=== PATIENT | female | born 1955 | race African-American/Black ===

== ENCOUNTER 2017-01-31 12:39 | Inpatient (IN) | payer MEDICARE ==
[~2017-01-31] VITALS: Ht 162.6 cm; Wt 76.7 kg
[~2017-01-31 12:39] MED LIST: ASPI-1035 PO; ATOR80TA PO; DOCU-150 PO; DOCU250C21 PO; FAMO20TA8 PO; HYDR-3927 PO; INSU100V3 SQ; LEVVL SUBCUT; LISI-604 PO; METO25TA6 PO; POLY17PO3 PO; TICA90TA PO
[2017-01-31] MEDS ORDERED: FAMOTIDINE 20MG/2ML VIAL IV STA (13:23)
[2017-01-31] MEDS ORDERED: SODIUM CHLORIDE 0.9% 1,000 ML IV ONE (13:23)
[2017-01-31] MEDS ORDERED: ONDANSETRON HCL 4MG/2ML VIAL IV STA (13:23)
[2017-01-31] MEDS ORDERED: MORPHINE SULFATE 4 MG/ML CPJ (NOT FOR IM USE) IV STA (13:23)
[2017-01-31 14:25] LABS: CHLORIDE 101 mEq/L (98-107); INDEX HEMOLYSI 1 (1-3); INDEX ICTERIC 1 (1-4); INDEX LIPEMIC 1 (1-3); PROTHROMBIN TIME 10.8 sec
[2017-01-31 14:27] LABS: BASOPHILS % 1.1 % (0.0-2.0); EOSINOPHILS % 1.3 % (0.0-5.0); HEMATOCRIT. 32.7 % (36.0-48.0); HEMOGLOBIN. 10.9 g/dL (12.0-16.0); LYMPHOCYTES % 20.2 % (20.0-50.0); MEAN CORPUSCULAR HEMOGLOBIN 28.7 pg (28.0-32.0); MEAN CORPUSCULAR HGB CONC 33.3 g/dL (31.0-37.0); MEAN CORPUSCULAR VOLUME 86.2 fL (81.0-99.0); MEAN PLATELET VOLUME 7.8 fl (7.4-10.4); MONOCYTES % 8.1 % (2.0-8.0); NEUTROPHILS % 69.3 % (40.0-76.0); PLATELET 406 x1000/uL (130-400); RED BLOOD CELL COUNT 3.79 mill/uL (4.2-5.4); WHITE BLOOD COUNT 4.5 x1000/uL (4.5-11.0)
[2017-01-31 14:28] LABS: ALBUMIN 3.4 g/dL (3.4-5.0); ANION GAP 14; CALCIUM 8.3 mg/dL (8.5-10.1); CARBON DIOXIDE 24 mEq/L (21-32); LIPASE 344 IU/L (73-393); UREA NITROGEN BLOOD 34 mg/dL (7-21)
[2017-01-31 14:35] LABS: ALANINE AMINOTRANSFERASE 15 IU/L (13-61); TROPONIN I 0.05 ng/mL (0.00-0.04); eGFR > 60 mL/min (>60)
[2017-01-31 16:49] LABS: GLUCOSE URINE 1+ (NEGATIVE); KETONES URINE NEGATIVE (NEGATIVE); LEUKOCYTE ESTERASE URINE TRACE (NEGATIVE); NITRITE URINE NEGATIVE (NEGATIVE); OCCULT BLOOD URINE NEGATIVE (NEGATIVE); PROTEIN URINE 2+ (NEGATIVE); SPECIFIC GRAVITY URINE 1.012 (1.005-1.030); UROBILINOGEN URINE 0.2 E.U./dL (0.2-1.0)
[2017-01-31 16:53] LABS: CLARITY URINE CLEAR (CLEAR); COLOR URINE YELLOW (YELLOW)
[2017-01-31 17:26] LABS: BACTERIA URINE 2+; RBC URINE 0-2 /hpf (0-2); SQUAMOUS EPITHELIAL CELL URINE FEW /lpf (RARE/1+)
[2017-01-31 18:20] VITALS: BP 161/84
[2017-01-31 20:02] VITALS: BP 129/67
[2017-01-31] MEDS ORDERED: HYDROMORPHONE HCL/PF 2MG/ML CPJ IV PRN (20:45)
[2017-01-31] MEDS ORDERED: CLONIDINE 0.2MG TABLET PO PRN (20:45)
[2017-01-31] MEDS ORDERED: ONDANSETRON HCL 4MG/2ML VIAL IV PRN (20:45)
[2017-01-31] MEDS ORDERED: DEXTROSE 50% WATER 50ML SYRINGE IV PRN (20:45)
[2017-01-31] MEDS: BLOOD SUGAR DIAGNOSTIC STRIP TEST SCH (21:34)
[2017-01-31] MEDS: INSULIN LISPRO 100 UNITS/ML SUBCUT SCH (21:38)
[2017-01-31] MEDS: INSULIN DETEMIR UD 100 UNITS/ML SYR SUBCUT SCH (22:00)
[2017-01-31] MEDS: SODIUM CHLORIDE 0.45% 1,000 ML IV SCH (22:13)
[2017-02-01 00:08] VITALS: BP 135/70
[2017-02-01] MEDS: HYDROCODONE/ACETAMINOPHEN 5/325MG TABLET PO PRN ×3 (00:27→21:13)
[2017-02-01 04:10] VITALS: BP 121/62
[2017-02-01 07:13] LABS: BASOPHILS % 1.8 % (0.0-2.0); EOSINOPHILS % 3.8 % (0.0-5.0); HEMATOCRIT. 31.7 % (36.0-48.0); HEMOGLOBIN. 10.5 g/dL (12.0-16.0); LYMPHOCYTES % 52.9 % (20.0-50.0); MEAN CORPUSCULAR HEMOGLOBIN 28.6 pg (28.0-32.0); MEAN CORPUSCULAR VOLUME 86.9 fL (81.0-99.0); MEAN PLATELET VOLUME 7.8 fl (7.4-10.4); MONOCYTES % 10.3 % (2.0-8.0); NEUTROPHILS % 31.2 % (40.0-76.0); PLATELET 390 x1000/uL (130-400); RED BLOOD CELL COUNT 3.65 mill/uL (4.2-5.4); RED CELL DISTRIBUTION WIDTH 13.9 % (11.6-14.6); WHITE BLOOD COUNT 3.5 x1000/uL (4.5-11.0)
[2017-02-01 07:36] LABS: ANION GAP 13; CALCIUM 8.9 mg/dL (8.5-10.1); CARBON DIOXIDE 25 mEq/L (21-32); CHLORIDE 100 mEq/L (98-107); INDEX HEMOLYSI 1 (1-3); INDEX ICTERIC 1 (1-4); INDEX LIPEMIC 1 (1-3); UREA NITROGEN BLOOD 32 mg/dL (7-21); eGFR > 60 mL/min (>60)
[2017-02-01] MEDS: BLOOD SUGAR DIAGNOSTIC STRIP TEST SCH ×4 (07:40→21:12)
[2017-02-01] MEDS: DOCUSATE SODIUM 250MG CAPSULE PO SCH ×2 (08:08→18:40)
[2017-02-01] MEDS: LISINOPRIL 20MG TABLET PO SCH (08:08)
[2017-02-01] MEDS: FAMOTIDINE 20MG TABLET PO SCH (08:08)
[2017-02-01] MEDS: ENOXAPARIN 40MG/0.4ML SYR SUBCUT SCH (08:09)
[2017-02-01] MEDS: METOPROLOL TARTRATE 25MG TABLET PO SCH (08:09)
[2017-02-01] MEDS: SODIUM CHLORIDE 0.45% 1,000 ML IV SCH ×2 (08:10→18:40)
[2017-02-01] MEDS: INSULIN LISPRO 100 UNITS/ML SUBCUT SCH ×4 (08:52→21:15)
[2017-02-01 20:00] VITALS: BP 110/64
[2017-02-01] MEDS: INSULIN DETEMIR UD 100 UNITS/ML SYR SUBCUT SCH (21:16)
[2017-02-02] VITALS (7 sets, daily range): BP systolic 100–136; BP diastolic 55–72
[2017-02-02] MEDS: ZOLPIDEM TARTRATE 5MG TABLET PO PRN (00:42)
[2017-02-02] MEDS: HYDROCODONE/ACETAMINOPHEN 5/325MG TABLET PO PRN ×3 (03:22→18:41)
[2017-02-02] MEDS: SODIUM CHLORIDE 0.45% 1,000 ML IV SCH ×3 (03:23→21:17)
[2017-02-02] MEDS: BLOOD SUGAR DIAGNOSTIC STRIP TEST SCH ×4 (06:52→21:00)
[2017-02-02] MEDS: FAMOTIDINE 20MG TABLET PO SCH (08:04)
[2017-02-02] MEDS: DOCUSATE SODIUM 250MG CAPSULE PO SCH ×2 (08:04→17:52)
[2017-02-02] MEDS: ENOXAPARIN 40MG/0.4ML SYR SUBCUT SCH (08:05)
[2017-02-02] MEDS: METOPROLOL TARTRATE 25MG TABLET PO SCH (08:05)
[2017-02-02] MEDS: LISINOPRIL 20MG TABLET PO SCH (08:06)
[2017-02-02] MEDS: INSULIN LISPRO 100 UNITS/ML SUBCUT SCH ×4 (08:07→21:00)
[2017-02-02] MEDS: INSULIN DETEMIR UD 100 UNITS/ML SYR SUBCUT SCH (22:17)
[2017-02-03] MEDS: ZOLPIDEM TARTRATE 5MG TABLET PO PRN (02:35)
[2017-02-03 04:00] VITALS: BP 140/72
[2017-02-03] MEDS: BLOOD SUGAR DIAGNOSTIC STRIP TEST SCH (07:40)
[2017-02-03] MEDS: INSULIN LISPRO 100 UNITS/ML SUBCUT SCH (08:10)
[2017-02-03 08:12] VITALS: BP 144/77
[2017-02-03] MEDS: DOCUSATE SODIUM 250MG CAPSULE PO SCH (08:58)
[2017-02-03] MEDS: METOPROLOL TARTRATE 25MG TABLET PO SCH (08:58)
[2017-02-03] MEDS: FAMOTIDINE 20MG TABLET PO SCH (08:58)
[2017-02-03] MEDS: LISINOPRIL 20MG TABLET PO SCH (08:59)
[2017-02-03] MEDS: ENOXAPARIN 40MG/0.4ML SYR SUBCUT SCH (09:00)
[2017-02-03] MEDS: HYDROCODONE/ACETAMINOPHEN 5/325MG TABLET PO PRN (09:07)
[2017-02-03 11:23] VITALS: BP_SYST 106; BP_SYST 140; BP_DIAS 51; BP_DIAS 78
[2017-02-03 12:00] VITALS: BP 140/78
== END 2017-02-03 12:20 | disposition home or self-care (01) | DRG 391 ==
LOC: ER 14:47 → 7WST 15:24
PROVIDERS: ADMIT Internal Medicine; ATTEND Internal Medicine
DX: K52.9 Noninfective gastroenteritis and colitis, unspecified (principal); G93.41 Metabolic encephalopathy; E46 Unspecified protein-calorie malnutrition; K29.70 Gastritis, unspecified, without bleeding; E86.0 Dehydration; I10 Essential (primary) hypertension; D64.9 Anemia, unspecified; E78.5 Hyperlipidemia, unspecified; G89.4 Chronic pain syndrome; I25.10 Atherosclerotic heart disease of native coronary artery without angina pectoris; M54.9 Dorsalgia, unspecified; M19.90 Unspecified osteoarthritis, unspecified site; Z95.5 Presence of coronary angioplasty implant and graft; I25.2 Old myocardial infarction; Z88.1 Allergy status to other antibiotic agents; Z79.82 Long term (current) use of aspirin; Z79.4 Long term (current) use of insulin; Z79.899 Other long term (current) drug therapy; Z68.29 Body mass index [BMI] 29.0-29.9, adult; E11.43 Type 2 diabetes mellitus with diabetic autonomic (poly)neuropathy
CPT/HCPCS: 36415; 71010; 74176; 80048; 80053; 81001; 82962; 83605; 83690; 84484; 85025; 85610; 93005; 96361; 96374; 96375; 99285; C1893; J1650; J1815; J2270; J2405; J3490; J7030

== ENCOUNTER 2017-03-21 09:34 | Inpatient (IN) | payer MEDICARE ==
[~2017-03-21] VITALS: Ht 162.6 cm; Wt 66.2 kg
[~2017-03-21 09:34] MED LIST changes: -ASPI-1035 PO; +ASPI-1159 PO; -INSU100V3 SQ; -LEVVL SUBCUT; +METF500T4 PO
[2017-03-21] MEDS ORDERED: SODIUM CHLORIDE 0.9% 1,000 ML IV ONE (09:54)
[2017-03-21] MEDS ORDERED: ONDANSETRON HCL 4MG/2ML VIAL IV STA (09:54)
[2017-03-21] MEDS ORDERED: FAMOTIDINE 20MG/2ML VIAL IV STA (09:54)
[2017-03-21 10:16] LABS: BASOPHILS % 1.1 % (0.0-2.0); EOSINOPHILS % 0.1 % (0.0-5.0); HEMATOCRIT. 38.6 % (36.0-48.0); LYMPHOCYTES % 15.6 % (20.0-50.0); MEAN CORPUSCULAR HEMOGLOBIN 28.3 pg (28.0-32.0); MEAN PLATELET VOLUME 7.5 fl (7.4-10.4); MONOCYTES % 6.8 % (2.0-8.0); NEUTROPHILS % 76.4 % (40.0-76.0); PLATELET 413 x1000/uL (130-400); RED CELL DISTRIBUTION WIDTH 14.6 % (11.6-14.6)
[2017-03-21 10:23] LABS: PROTHROMBIN TIME 10.7 sec
[2017-03-21 10:30] LABS: CARBON DIOXIDE 24 mEq/L (21-32); CHLORIDE 80 mEq/L (98-107)
[2017-03-21 10:33] LABS: TROPONIN I 0.07 ng/mL (0.00-0.04)
[2017-03-21] MEDS ORDERED: SODIUM CHLORIDE 0.9% 1,100 ML IV ONE (10:50)
[2017-03-21] MEDS ORDERED: METOCLOPRAMIDE HCL 10MG/2ML VIAL IV ONE (11:15)
[2017-03-21] MEDS ORDERED: DIPHENHYDRAMINE 50MG/ML VIAL IV ONE (11:15)
[2017-03-21 11:23] LABS: GLUCOSE URINE 1+ (NEGATIVE); KETONES URINE TRACE (NEGATIVE); LEUKOCYTE ESTERASE URINE NEGATIVE (NEGATIVE); NITRITE URINE NEGATIVE (NEGATIVE); OCCULT BLOOD URINE 1+ (NEGATIVE); PROTEIN URINE 2+ (NEGATIVE); SPECIFIC GRAVITY URINE 1.022 (1.005-1.030); UROBILINOGEN URINE 0.2 E.U./dL (0.2-1.0)
[2017-03-21 11:24] LABS: CLARITY URINE CLOUDY (CLEAR); COLOR URINE YELLOW (YELLOW)
[2017-03-21] MEDS ORDERED: MAGNESIUM/ALUMINUM HYDROXIDE/SIMETHICONE 30ML UDC PO PRN (12:00)
[2017-03-21] MEDS ORDERED: HYDROCODONE/ACETAMINOPHEN 10/325MG TABLET PO PRN (12:00)
[2017-03-21] MEDS ORDERED: CEFTRIAXONE 2 G PREMIX 50 ML IV NR (12:00)
[2017-03-21] MEDS ORDERED: LORAZEPAM 2MG/ML CPJ IV PRN (12:00)
[2017-03-21] MEDS ORDERED: IPRATROPIUM/ALBUTEROL 0.5-3(2.5)MG/3ML NEB INH PRN (12:00)
[2017-03-21] MEDS ORDERED: NA PHOS,M-B/NA PHOS,DI-BA ENEMA 118ML PR PRN (12:00)
[2017-03-21] MEDS ORDERED: ACETAMINOPHEN 325MG TABLET PO PRN (12:00)
[2017-03-21] MEDS ORDERED: GUAIFENESIN 200MG/10ML SUGAR FREE UDC PO PRN (12:00)
[2017-03-21] MEDS ORDERED: DOCUSATE SODIUM 100MG CAPSULE PO PRN (12:00)
[2017-03-21] MEDS ORDERED: CLONIDINE 0.1MG TABLET PO PRN (12:00)
[2017-03-21 12:38] LABS: BG BASE EXCESS -3.3 mmol/L (-2.0-2.0); BG CARBOXYHEMOGLOBIN 0.3 % (0.5-1.5); BG DEOXYHEMOGLOBIN 2.8 % (0.0-5.0); BG FRACTION INSPIRED OXYGEN 21; BG HCO3 ACT 21.2 mmol/L (22.0-26.0); BG METHEMOGLOBIN 0.3 % (0.0-1.5); BG OXYGEN SATURATION 97.2 % (92.0-98.5); BG OXYHEMOGLOBIN 96.6 % (94.0-97.0); BG PCO2 35.9 mmHg (35.0-45.0); BG PH 7.389 (7.350-7.450); BG PO2 104.1 mmHg (75.0-100.0); BG SAMPLE SITE RIGHT BRACHIAL; BG TOTAL HEMOGLOBIN 11.3 g/dL (12.0-18.0); BG VENT MODE ROOM AIR
[2017-03-21] MEDS: SODIUM CHLORIDE 0.45% 1,000 ML IV SCH ×2 (13:58→18:28)
[2017-03-21 14:58] LABS: TROPONIN I 0.06 ng/mL (0.00-0.04)
[2017-03-21] MEDS ORDERED: DEXTROSE 50% WATER 50ML SYRINGE IV PRN (16:30)
[2017-03-21 16:39] VITALS: BP 139/75
[2017-03-21] MEDS: BLOOD SUGAR DIAGNOSTIC STRIP TEST SCH ×3 (17:00→21:34)
[2017-03-21] MEDS: TICAGRELOR 90 MG TABLET PO SCH (18:14)
[2017-03-21] MEDS: INSULIN LISPRO 100 UNITS/ML SUBCUT SCH ×2 (18:14→21:34)
[2017-03-21] MEDS: ENOXAPARIN 30MG/0.3ML SYR SUBCUT SCH (18:15)
[2017-03-21 20:32] VITALS: BP 91/51
[2017-03-21] MEDS: HYDROMORPHONE HCL/PF 2MG/ML CPJ IV PRN (23:25)
[2017-03-22] VITALS: BP 98/49
[2017-03-22] MEDS: ONDANSETRON HCL 4MG/2ML VIAL IV PRN ×4 (01:10→23:59)
[2017-03-22 04:00] VITALS: BP 135/69
[2017-03-22] MEDS: SODIUM CHLORIDE 0.45% 1,000 ML IV SCH (04:31)
[2017-03-22 05:37] LABS: BASOPHILS % 0.5 % (0.0-2.0); EOSINOPHILS % 0.9 % (0.0-5.0); HEMATOCRIT. 31.6 % (36.0-48.0); HEMOGLOBIN. 10.8 g/dL (12.0-16.0); LYMPHOCYTES % 13.6 % (20.0-50.0); MEAN CORPUSCULAR HEMOGLOBIN 28.4 pg (28.0-32.0); MEAN CORPUSCULAR VOLUME 83.4 fL (81.0-99.0); MEAN PLATELET VOLUME 7.6 fl (7.4-10.4); MONOCYTES % 8.4 % (2.0-8.0); NEUTROPHILS % 76.6 % (40.0-76.0); PLATELET 291 x1000/uL (130-400); RED BLOOD CELL COUNT 3.79 mill/uL (4.2-5.4); RED CELL DISTRIBUTION WIDTH 14.4 % (11.6-14.6)
[2017-03-22 06:37] LABS: CARBON DIOXIDE 24 mEq/L (21-32); CHLORIDE 95 mEq/L (98-107); LDL CHOLESTEROL 137 mg/dL (5-100)
[2017-03-22 06:40] LABS: HDL CHOLESTEROL 42 mg/dL (40-59); T4 FREE 1.85 ng/dL (0.76-1.46)
[2017-03-22] MEDS: BLOOD SUGAR DIAGNOSTIC STRIP TEST SCH ×4 (06:50→20:46)
[2017-03-22 08:00] VITALS: BP 115/58
[2017-03-22] MEDS: FAMOTIDINE 20MG TABLET PO SCH (08:40)
[2017-03-22] MEDS: ASPIRIN 81MG EC TABLET PO SCH (08:40)
[2017-03-22] MEDS: METOPROLOL TARTRATE 25MG TABLET PO SCH (08:41)
[2017-03-22] MEDS: TICAGRELOR 90 MG TABLET PO SCH ×2 (08:41→16:27)
[2017-03-22] MEDS: ENOXAPARIN 30MG/0.3ML SYR SUBCUT SCH (08:42)
[2017-03-22] MEDS: INSULIN LISPRO 100 UNITS/ML SUBCUT SCH ×4 (08:44→20:47)
[2017-03-22] MEDS ORDERED: POTASSIUM ACETATE IV SCH ×2 (09:15→09:16)
[2017-03-22] MEDS ORDERED: SODIUM CHLORIDE 0.9% IV SCH ×2 (09:15→09:16)
[2017-03-22] MEDS ORDERED: SODIUM CHLORIDE 0.9% 1,000 ML IV SCH (09:45)
[2017-03-22] MEDS: POTASSIUM CHLORIDE INJ 30 MEQ in SODIUM CHLORIDE 0.9% 1,000 ML IV SCH ×2 (11:02→20:46)
[2017-03-22 12:03] VITALS: BP 106/57
[2017-03-22 16:00] VITALS: BP 121/64
[2017-03-22] MEDS: HYDROMORPHONE HCL/PF 2MG/ML CPJ IV PRN ×2 (16:28→23:04)
[2017-03-22 20:00] VITALS: BP 124/66
[2017-03-23] VITALS: BP 141/67
[2017-03-23 04:00] VITALS: BP 113/63
[2017-03-23 05:53] LABS: BASOPHILS % 0.9 % (0.0-2.0); EOSINOPHILS % 2.4 % (0.0-5.0); HEMATOCRIT. 26.8 % (36.0-48.0); HEMOGLOBIN. 8.9 g/dL (12.0-16.0); MEAN CORPUSCULAR HEMOGLOBIN 27.9 pg (28.0-32.0); MEAN CORPUSCULAR VOLUME 84.4 fL (81.0-99.0); MEAN PLATELET VOLUME 7.9 fl (7.4-10.4); MONOCYTES % 7.3 % (2.0-8.0); NEUTROPHILS % 62.4 % (40.0-76.0); PLATELET 256 x1000/uL (130-400); RED BLOOD CELL COUNT 3.17 mill/uL (4.2-5.4); RED CELL DISTRIBUTION WIDTH 14.4 % (11.6-14.6)
[2017-03-23] MEDS: BLOOD SUGAR DIAGNOSTIC STRIP TEST SCH ×4 (06:41→20:02)
[2017-03-23 08:00] VITALS: BP 128/66
[2017-03-23] MEDS: POTASSIUM CHLORIDE INJ 30 MEQ in SODIUM CHLORIDE 0.9% 1,000 ML IV SCH ×2 (08:18→17:11)
[2017-03-23] MEDS: ONDANSETRON HCL 4MG/2ML VIAL IV PRN (08:36)
[2017-03-23] MEDS: METOPROLOL TARTRATE 25MG TABLET PO SCH (08:55)
[2017-03-23] MEDS: ASPIRIN 81MG EC TABLET PO SCH (08:55)
[2017-03-23] MEDS: LOSARTAN POTASSIUM 50 MG TABLET PO SCH (08:55)
[2017-03-23] MEDS: FAMOTIDINE 20MG TABLET PO SCH (08:55)
[2017-03-23] MEDS: INSULIN LISPRO 100 UNITS/ML SUBCUT SCH ×4 (08:56→20:34)
[2017-03-23] MEDS: ENOXAPARIN 30MG/0.3ML SYR SUBCUT SCH (08:57)
[2017-03-23] MEDS: TICAGRELOR 90 MG TABLET PO SCH ×2 (09:46→17:13)
[2017-03-23] MEDS: HYDROMORPHONE HCL/PF 2MG/ML CPJ IV PRN ×2 (11:21→22:28)
[2017-03-23 12:00] VITALS: BP 111/57
[2017-03-23 16:00] VITALS: BP 115/67
[2017-03-23 20:00] VITALS: BP 109/52
[2017-03-24] VITALS: BP 116/62
[2017-03-24] MEDS: ONDANSETRON HCL 4MG/2ML VIAL IV PRN (00:06)
[2017-03-24] MEDS: HYDROMORPHONE HCL/PF 2MG/ML CPJ IV PRN ×4 (02:26→23:12)
[2017-03-24 04:00] VITALS: BP 148/81
[2017-03-24 05:28] LABS: BASOPHILS % 0.5 % (0.0-2.0); EOSINOPHILS % 3.7 % (0.0-5.0); HEMATOCRIT. 28.4 % (36.0-48.0); HEMOGLOBIN. 9.5 g/dL (12.0-16.0); LYMPHOCYTES % 27.6 % (20.0-50.0); MEAN CORPUSCULAR HEMOGLOBIN 28.2 pg (28.0-32.0); MEAN CORPUSCULAR VOLUME 84.6 fL (81.0-99.0); MEAN PLATELET VOLUME 7.8 fl (7.4-10.4); MONOCYTES % 7.8 % (2.0-8.0); NEUTROPHILS % 60.4 % (40.0-76.0); PLATELET 295 x1000/uL (130-400); RED BLOOD CELL COUNT 3.36 mill/uL (4.2-5.4); RED CELL DISTRIBUTION WIDTH 14.7 % (11.6-14.6)
[2017-03-24] MEDS: BLOOD SUGAR DIAGNOSTIC STRIP TEST SCH ×4 (07:40→19:59)
[2017-03-24 08:00] VITALS: BP 134/63
[2017-03-24] MEDS: LOSARTAN POTASSIUM 50 MG TABLET PO SCH (08:18)
[2017-03-24] MEDS: INSULIN LISPRO 100 UNITS/ML SUBCUT SCH ×4 (08:18→20:18)
[2017-03-24] MEDS: ASPIRIN 81MG EC TABLET PO SCH (08:18)
[2017-03-24] MEDS: FAMOTIDINE 20MG TABLET PO SCH (08:18)
[2017-03-24] MEDS: TICAGRELOR 90 MG TABLET PO SCH ×2 (08:19→18:05)
[2017-03-24] MEDS: ENOXAPARIN 30MG/0.3ML SYR SUBCUT SCH (08:19)
[2017-03-24] MEDS: METOPROLOL TARTRATE 25MG TABLET PO SCH (08:19)
[2017-03-24 12:00] VITALS: BP 123/65
[2017-03-24 16:00] VITALS: BP 126/77
[2017-03-24 20:00] VITALS: BP 154/76
[2017-03-25] VITALS: BP 146/77
[2017-03-25] MEDS: ONDANSETRON HCL 4MG/2ML VIAL IV PRN (00:58)
[2017-03-25 04:00] VITALS: BP 127/67
[2017-03-25 06:37] LABS: CARBON DIOXIDE 28 mEq/L (21-32); CHLORIDE 101 mEq/L (98-107)
[2017-03-25] MEDS: BLOOD SUGAR DIAGNOSTIC STRIP TEST SCH (07:40)
[2017-03-25 08:00] VITALS: BP 147/76
[2017-03-25] MEDS: FAMOTIDINE 20MG TABLET PO SCH (08:47)
[2017-03-25] MEDS: METOPROLOL TARTRATE 25MG TABLET PO SCH (08:47)
[2017-03-25] MEDS: ASPIRIN 81MG EC TABLET PO SCH (08:47)
[2017-03-25] MEDS: TICAGRELOR 90 MG TABLET PO SCH (08:47)
[2017-03-25] MEDS: INSULIN LISPRO 100 UNITS/ML SUBCUT SCH (08:48)
[2017-03-25] MEDS: LOSARTAN POTASSIUM 50 MG TABLET PO SCH (08:48)
[2017-03-25] MEDS ORDERED: ENOXAPARIN 40MG/0.4ML SYR SUBCUT SCH (09:00)
[2017-03-25 10:24] LABS: CARBON DIOXIDE 30 mEq/L (21-32); CHLORIDE 102 mEq/L (98-107)
[2017-03-25 10:52] VITALS: BP 147/76
== END 2017-03-25 11:20 | disposition home or self-care (01) | DRG 73 ==
LOC: ER 10:20 → 7WST 11:16 → ENRESERV 14:16
PROVIDERS: ADMIT Internal Medicine; ATTEND Internal Medicine
DX: E11.43 Type 2 diabetes mellitus with diabetic autonomic (poly)neuropathy (principal); N17.0 Acute kidney failure with tubular necrosis; E87.1 Hypo-osmolality and hyponatremia; E46 Unspecified protein-calorie malnutrition; I25.10 Atherosclerotic heart disease of native coronary artery without angina pectoris; K31.84 Gastroparesis; I12.9 Hypertensive chronic kidney disease with stage 1 through stage 4 chronic kidney disease, or unspecified chronic kidney disease; E11.65 Type 2 diabetes mellitus with hyperglycemia; E78.5 Hyperlipidemia, unspecified; N18.9 Chronic kidney disease, unspecified; E11.22 Type 2 diabetes mellitus with diabetic chronic kidney disease; E86.0 Dehydration; E87.5 Hyperkalemia; E87.6 Hypokalemia; T46.5X5A Adverse effect of other antihypertensive drugs, initial encounter; Z91.19 Patient's noncompliance with other medical treatment and regimen; Z76.5 Malingerer [conscious simulation]; Z95.5 Presence of coronary angioplasty implant and graft; I25.2 Old myocardial infarction; Z88.1 Allergy status to other antibiotic agents; Z68.25 Body mass index [BMI] 25.0-25.9, adult; Z79.899 Other long term (current) drug therapy; Z79.82 Long term (current) use of aspirin; Y92.89 Other specified places as the place of occurrence of the external cause; Z83.3 Family history of diabetes mellitus
CPT/HCPCS: 36415; 36600; 51702; 71010; 80048; 80053; 80061; 81001; 82010; 82375; 82805; 82962; 83605; 83690; 84439; 84481; 84484; 85025; 85610; 87040; 87086; 93005; 96361; 96365; 96375; 97162; 99291; J0696; J1170; J1200; J1650; J1815; J2060; J2405; J2765; J3480; J3490; J7030; A4315; J8499

== ENCOUNTER 2020-09-03 19:22 | Inpatient (IN) | payer BC, MEDICARE ==
[~2020-09-03] VITALS: Ht 162.6 cm; Wt 55.3 kg
[~2020-09-03 19:22] MED LIST changes: -ASPI-1159 PO; +ASPI-1497 PO; -DOCU250C21 PO; +DOCU250C87 PO; +METF-414 PO; -METF500T4 PO
[2020-09-03] MEDS ORDERED: ONDANSETRON HCL 4MG/2ML INJ IV STA (19:46)
[2020-09-03] MEDS ORDERED: MORPHINE SULFATE 4 MG/ML CPJ (NOT FOR IM USE) IV STA (19:46)
[2020-09-03 20:36] LABS: HEMATOCRIT. 25.9 % (36.0-48.0); HEMOGLOBIN. 8.7 g/dL (12.0-16.0); MEAN CORPUSCULAR HEMOGLOBIN 27.6 pg (28.0-32.0); MEAN PLATELET VOLUME 7.7 fl (7.4-10.4); PLATELET 282 x1000/uL (130-400); RED BLOOD CELL COUNT 3.16 mill/uL (4.2-5.4); RED CELL DISTRIBUTION WIDTH 17.5 % (11.6-14.6)
[2020-09-03 20:46] LABS: INR 1.1; PROTHROMBIN TIME 11.7 sec (9.6-11.0)
[2020-09-03 20:50] LABS: CHLORIDE 98 mEq/L (98-107)
[2020-09-03] MEDS ORDERED: CEFTRIAXONE 1 G PREMIX 50 ML IV ONE (21:30)
[2020-09-03] MEDS ORDERED: AZITHROMYCIN 500 MG in DEXT 5% WATER 250 ML IV ONE (21:30)
[2020-09-03 21:37] LABS: PLATELET ESTIMATE NORMAL
[2020-09-03 22:21] LABS: CLARITY URINE TURBID (CLEAR); COLOR URINE YELLOW (YELLOW); KETONES URINE NEGATIVE (NEGATIVE); LEUKOCYTE ESTERASE URINE 3+ (NEGATIVE); NITRITE URINE NEGATIVE (NEGATIVE); OCCULT BLOOD URINE 3+ (NEGATIVE); PROTEIN URINE 2+ (NEGATIVE); SPECIFIC GRAVITY URINE 1.013 (1.005-1.030)
[2020-09-04] MEDS ORDERED: MORPHINE SULFATE 4 MG/ML CPJ (NOT FOR IM USE) IV PRN (08:45)
[2020-09-04] MEDS ORDERED: DEXTROSE 50% WATER 50ML SYRINGE IV PRN (08:45)
[2020-09-04 09:19] LABS: HEMATOCRIT. 27.8 % (36.0-48.0); HEMOGLOBIN. 9.1 g/dL (12.0-16.0); MEAN CORPUSCULAR HEMOGLOBIN 27.4 pg (28.0-32.0); MEAN CORPUSCULAR VOLUME 83.8 fL (81.0-99.0); MEAN PLATELET VOLUME 7.8 fl (7.4-10.4); PLATELET 274 x1000/uL (130-400); RED BLOOD CELL COUNT 3.32 mill/uL (4.2-5.4); RED CELL DISTRIBUTION WIDTH 17.7 % (11.6-14.6)
[2020-09-04] MEDS: BLOOD SUGAR DIAGNOSTIC STRIP TEST SCH ×4 (09:27→21:22)
[2020-09-04 09:29] LABS: CHLORIDE 98 mEq/L (98-107)
[2020-09-04 10:09] LABS: PLATELET ESTIMATE NORMAL
[2020-09-04] MEDS: MORPHINE SULFATE 2 MG/ML CPJ (NOT FOR IM USE) IV PRN (10:20)
[2020-09-04] MEDS: ENOXAPARIN 40MG/0.4ML SYR SUBCUT SCH (11:30)
[2020-09-04] MEDS ORDERED: CLONIDINE 0.2MG TABLET PO PRN (12:30)
[2020-09-04] MEDS ORDERED: MORPHINE SULFATE 2 MG/ML CPJ (NOT FOR IM USE) IV ONE (12:30)
[2020-09-04] MEDS ORDERED: MORPHINE SULFATE 2 MG/ML CPJ (NOT FOR IM USE) IV PRN (12:45)
[2020-09-04] MEDS: HYDROCODONE/ACETAMINOPHEN 5/325MG TABLET PO PRN ×2 (13:48→20:32)
[2020-09-04] MEDS: INSULIN LISPRO 100 UNITS/ML SUBCUT SCH ×3 (14:01→21:22)
[2020-09-04] MEDS: ONDANSETRON HCL 4MG/2ML INJ IV PRN (14:52)
[2020-09-04] MEDS: METOPROLOL TARTRATE 25MG TABLET PO SCH (17:56)
[2020-09-04] MEDS: LISINOPRIL 20MG TABLET PO SCH (21:22)
[2020-09-04] MEDS ORDERED: AZITHROMYCIN 500 MG in DEXT 5% WATER 250 ML IV SCH (22:00)
[2020-09-04] MEDS ORDERED: CEFTRIAXONE 1 G PREMIX 50 ML IV SCH (23:00)
[2020-09-04] MEDS ORDERED: *PATIENT'S OWN MEDICATION STORAGE XX SCH (23:45)
[2020-09-04 23:53] VITALS: BP 133/80
[2020-09-05] VITALS (9 sets, daily range): BP systolic 95–156; BP diastolic 59–89
[2020-09-05] MEDS: CEFTRIAXONE 1,000 MG in DEXTROSE 5% WATER 50 ML IV SCH ×2 (00:49→23:10)
[2020-09-05] MEDS: MORPHINE SULFATE 2 MG/ML CPJ (NOT FOR IM USE) IV PRN ×3 (00:50→16:30)
[2020-09-05] MEDS: ONDANSETRON HCL 4MG/2ML INJ IV PRN (00:50)
[2020-09-05] MEDS: BLOOD SUGAR DIAGNOSTIC STRIP TEST SCH ×4 (07:30→21:44)
[2020-09-05] MEDS: INSULIN LISPRO 100 UNITS/ML SUBCUT SCH ×4 (08:00→21:44)
[2020-09-05] MEDS: LISINOPRIL 20MG TABLET PO SCH ×2 (08:55→20:26)
[2020-09-05] MEDS: METOPROLOL TARTRATE 25MG TABLET PO SCH ×2 (08:56→16:34)
[2020-09-05] MEDS ORDERED: ENOXAPARIN 40MG/0.4ML SYR SUBCUT SCH (09:00)
[2020-09-05] MEDS: ENOXAPARIN 40MG/0.4ML SYR SUBCUT SCH (11:05)
[2020-09-05] MEDS: HYDROCODONE/ACETAMINOPHEN 5/325MG TABLET PO PRN (20:28)
[2020-09-05 20:42] LABS: BASOPHILS % 0.7 % (0.0-2.0); EOSINOPHILS % 6.4 % (0.0-5.0); HEMATOCRIT. 25.8 % (36.0-48.0); HEMOGLOBIN. 8.6 g/dL (12.0-16.0); LYMPHOCYTES % 8.1 % (20.0-50.0); MEAN CORPUSCULAR HEMOGLOBIN 27.8 pg (28.0-32.0); MEAN CORPUSCULAR VOLUME 83.6 fL (81.0-99.0); MEAN PLATELET VOLUME 8.5 fl (7.4-10.4); MONOCYTES % 6.3 % (2.0-8.0); NEUTROPHILS % 78.5 % (40.0-76.0); PLATELET 287 x1000/uL (130-400); RED BLOOD CELL COUNT 3.09 mill/uL (4.2-5.4); RED CELL DISTRIBUTION WIDTH 17.5 % (11.6-14.6)
[2020-09-05 20:50] LABS: CHLORIDE 100 mEq/L (98-107)
[2020-09-05] MEDS ORDERED: AZITHROMYCIN 500 MG in DEXT 5% WATER 250 ML IV SCH (21:00)
[2020-09-06] VITALS (7 sets, daily range): BP systolic 99–140; BP diastolic 55–84
[2020-09-06] MEDS: MORPHINE SULFATE 2 MG/ML CPJ (NOT FOR IM USE) IV PRN ×3 (00:39→12:49)
[2020-09-06] MEDS: ONDANSETRON HCL 4MG/2ML INJ IV PRN (07:00)
[2020-09-06] MEDS: BLOOD SUGAR DIAGNOSTIC STRIP TEST SCH ×3 (08:10→18:12)
[2020-09-06] MEDS: METOPROLOL TARTRATE 25MG TABLET PO SCH ×2 (08:26→17:54)
[2020-09-06] MEDS: LISINOPRIL 20MG TABLET PO SCH (08:26)
[2020-09-06] MEDS: HYDROCODONE/ACETAMINOPHEN 5/325MG TABLET PO PRN ×2 (08:27→17:54)
[2020-09-06] MEDS: INSULIN LISPRO 100 UNITS/ML SUBCUT SCH ×3 (08:28→18:41)
[2020-09-06] MEDS: ENOXAPARIN 40MG/0.4ML SYR SUBCUT SCH (11:22)
== END 2020-09-06 19:00 | disposition home or self-care (01) | DRG 871 ==
LOC: ER 19:22 → MICUSO 22:47 → EDBEDREQTM 22:57 → EDBEDREQ 22:57 → CANRESERV 09-04 08:04 → ENRESERV 09-04 08:04 → SUPCPDRO 09-04 14:27 → CANRESERV 09-04 20:04 → ENRESERV 09-04 20:04 → 5EST 09-04 22:36
PROVIDERS: ADMIT Internal Medicine; ATTEND Internal Medicine
DX: A41.9 Sepsis, unspecified organism (principal); J18.9 Pneumonia, unspecified organism; N39.0 Urinary tract infection, site not specified; C79.11 Secondary malignant neoplasm of bladder; I50.22 Chronic systolic (congestive) heart failure; C53.9 Malignant neoplasm of cervix uteri, unspecified; D63.0 Anemia in neoplastic disease; E11.9 Type 2 diabetes mellitus without complications; M54.9 Dorsalgia, unspecified; F17.210 Nicotine dependence, cigarettes, uncomplicated; G89.29 Other chronic pain; I11.0 Hypertensive heart disease with heart failure; I25.10 Atherosclerotic heart disease of native coronary artery without angina pectoris; Z20.828 Contact with and (suspected) exposure to other viral communicable diseases; Z85.41 Personal history of malignant neoplasm of cervix uteri; Z88.1 Allergy status to other antibiotic agents; Z79.84 Long term (current) use of oral hypoglycemic drugs; Z79.891 Long term (current) use of opiate analgesic; Z79.899 Other long term (current) drug therapy; I25.2 Old myocardial infarction; Z95.5 Presence of coronary angioplasty implant and graft
CPT/HCPCS: 36415; 71045; 80048; 80053; 81003; 82962; 83036; 83605; 83880; 84145; 84484; 85025; 87077; 87186; 87635; 93306; 97162; 97530; 99285; C9803; J0456; J0696; J1650; J1815; J2270; J2405; J7060